=== PATIENT | female | born 1990 | race American Indian/Alaskan Native ===

== ENCOUNTER 2019-05-09 15:42 | Emergency (ER) | payer BC ==
[~2019-05-09] VITALS: Ht 162.6 cm; Wt 62.6 kg
--- NOTE | 2019-05-09 15:55 | NUR ---
PT IS IN ROOM #1B. DR PRO EVALUATED THE PT.
[2019-05-09] MEDS ORDERED: ACETAMINOPHEN ES 500 MG TABLET ONE (16:00)
[2019-05-09] MEDS ORDERED: ACETAMINOPHEN ES 500 MG TABLET PO ONE (16:00)
--- NOTE | 2019-05-09 16:53 | NUR ---
Patient discharged to home in stable conditon. Written and verbal after care instructions given. Patient verbalizes understanding of instructions.pt accompanied by family members.
== END 2019-05-09 16:55 | disposition home or self-care (01) ==
LOC: ER 15:42
DX: S93.401A Sprain of unspecified ligament of right ankle, initial encounter (principal); X50.1XXA Overexertion from prolonged static or awkward postures, initial encounter; Y93.89 Activity, other specified; Y92.89 Other specified places as the place of occurrence of the external cause; Y99.8 Other external cause status
CPT/HCPCS: 73610; A4663; A9150